=== PATIENT | male | born 1975 | race Caucasian/White ===

== ENCOUNTER 2016-10-26 09:21 | Emergency (ER) ==
[2016-10-26 09:29] VITALS: BP 121/79; TEMP 97.8; BMI 33.7
[2016-10-26] MEDS ORDERED: MOTRIN SUSP PO STA (09:37)
[2016-10-26] MEDS ORDERED: FLEXERIL PO STA (09:37)
[2016-10-26 09:48] LABS: BILIRUBIN,URINE Negative (NEGATIVE); KETONES,URINE Negative (NEGATIVE); LEUKOCYTE ESTERASE ,URINE Negative (NEGATIVE); NITRITE,URINE Negative (NEGATIVE); PH,URINE 5.5 (5-9); PROTEIN,URINE Negative (NEGATIVE); URINE, BLOOD Trace-lysed (NEGATIVE)
[2016-10-26 10:00] LABS: ADD URINE MICROSCOPIC YES
--- NOTE | 2016-10-26 10:17 | CT ---
EXAM: CT abdomen and pelvis without contrast. HISTORY: Low back pain per TECHNIQUE: Multi-slice transaxial helical CT. Coronal and sagittal reformatons were performed. COMPARISON: 01/06/2009. FINDINGS: The heart is normal in size. The lung bases are clear. Evaluation of the solid organs is limited without IV contrast. 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 There is no intrahepatic biliary ductal dilation. No hydronephrosis or renal calculus is seen. The gallbladder, pancreas, and adrenal glands appear grossly unremarkable within the confines of a noncontrast exam. The bowel is not dilated. Urinary bladder is nondistended. The prostate appears unremarkable. The appendix is normal in size. No evidence of intra-abdominal inflammation or fluid is seen. There is no retroperitoneal adenopathy. Mild to moderate multilevel degenerative changes of the lower lumba r spine is present. The IMPRESSION: 1. No acute abdominal findings. 2. No hydronephrosis, bowel obstruction, or intra-abdominal inflammation. Normal appendix. 3. 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 4. Mild splenomegaly.
--- NOTE | 2016-10-26 10:17 | CT ---
Exam: CT of the lumbar spine without intravenous contrast. Comparison: X-ray performed 08/12/2015. Reason for exam: Low back pain. FINDINGS: No acute fracture or listhesis. The vertebral body heights are well maintained. There i s mild to moderate degenerative disease with intervertebral body disc space height loss and facet ar thropathy. T12-L1: No significant central canal stenosis or foraminal narrowing. L1-L2: No significant central canal stenosis or foraminal narrowing. L2-L3: No significant central canal stenosis or foraminal narrowing. L3-L4: No significant central canal stenosis or foraminal narrowing. L4-L5: Small broad-based disc bulge with mild narrowing of the canal centrally and mild to moderate by foraminal stenosis secondary to extruded disc and facet hypertrophy. L5-S1: Left acentric disc protrusion with narrowing of the central canal and marked left sided and moderate right-sided foraminal stenosis secondary to a combination of extruded disc and facet hypert rophy. Impression: 1. No acute fracture or listhesis in the lumbar spine. 2. Broad-based disc bulge with mild central canal narrowing and mild to moderate foraminal stenosis at L4-L5. 3. Left acentric disc protrusion at L5-S1 with central canal narrowing and marked left-sided forami nal stenosis and moderate right-sided foraminal stenosis. If clinical concern exists, MRI may be per formed.
--- NOTE | 2016-10-26 10:24 | ED.PDOC ---
General ED Provider: Dr. CHALO GOODMAN-ER Chief Complaint: Back Pain Stated Complaint: my back hurts Time Seen by Physician: 09:30 Mode of Arrival: Walk-In Information Source: Patient, Family Exam Limitations: No limitations Nursing and Triage Documentation Reviewed and Agree: Yes Musculoskeletal Complaint Exam - Back Pain Complaint/Exam Mechanism of Injury: Reports: No known trauma Onset/Duration: 3 days Symptoms Are: Still present Timing: Constant Episodes Lasting: Days Initial Severity: Mild Current Severity: Moderate Location: Reports: Discrete Character: Reports: Dull, Aching, Stiffness Aggravating: Reports: Movements, Lifting, Bending, Walking Alleviating: Reports: None Associated Signs and Symptoms: Denies: Swelling, Redness, Bruising, Fever, Weakness, Numbness, Tingling, Abdominal pain, Flank pain, Bladder incontinence, Bowel incontinence, Weight loss, Pain with weight bearing Related Surgical History: Reports: None Focal Tenderness: Yes Paraspinal Muscle Tenderness: Yes Paraspinal Muscle Spasm: No Scoliosis: No Lordosis: No Kyphosis: No SLR Test: Right Negative, Left Negative Hip Motion Testing Pain: Right Negative, Left Negative Focal Weakness: Present: None Focal Sensory Loss: Present: None Gait: Present: Normal Differential Diagnoses: Arthritis, Herniated Disk, Renal Colic, Strain, Sprain Review of Systems - Review Of Systems Constitutional: Reports: No symptoms Eyes: Reports: No symptoms Ears, Nose, Mouth, Throat: Reports: No symptoms Respiratory: Reports: No symptoms Cardiac: Reports: No symptoms GI: Reports: No symptoms : Reports: No symptoms Musculoskeletal: Reports: Back pain Skin: Reports: No symptoms Neurological: Reports: No symptoms Endocrine: Reports: No symptoms Hematologic/Lymphatic: Reports: No symptoms All Other Systems: Reviewed and Negative Past Medical History - Past Medical History Previously Healthy: Yes Endocrine: Reports: Unknown Cardiovascular: Reports: Unknown Respiratory: Reports: Unknown Hematological: Reports: Unknown Gastrointestinal: Reports: Unknown Genitourinary: Reports: Unknown Neuro/Psych: Reports: Unknown Musculoskeletal: Reports: Unknown Cancer: Reports: Unknown - Surgical History General Surgical History: Reports: Unknown - Family History Family History: Reports: Unknown - Social History Smoking Status: Current some day smoker Hx Substance Use: No Alcohol Screening: Occasionally Lives: With family Physical Exam - Physical Exam Appearance: Well-appearing, No pain distress, Well-nourished Pain Distress: Moderate Eyes: JULIAN, EOMI, Conjunctiva clear ENT: Ears normal, Nose normal, Oropharynx normal Neck: Supple Respiratory: Airway patent, Breath sounds clear, Breath sounds equal, Respirations nonlabored Cardiovascular: RRR GI/: Soft, Nontender, No masses, Bowel sounds normal, No Organomegaly Musculoskeletal: Normal strength, ROM intact, No edema, No calf tenderness Skin: Warm, Dry, Normal color Neurological: Sensation intact, Motor intact, Reflexes intact, Cranial nerves intact, Alert, Oriented Psychiatric: Affect appropriate, Mood appropriate Interpretation - Radiology Interpretation Radiology Interpretation By: Radiologist Radiology Results: Negative Exam Interpreted: CT Scan Critical Care Note - Critical Care Note Total Time (mins): 0 Course - Course Orders, Labs, Meds: Lab Review 10/26/16 09:40 Urine Color Yellow Urine Clarity Clear Urine pH 5.5 Ur Specific [place] 1.025 Urine Protein Negative Urine Glucose (UA) Negative Urine Ketones Negative Urine Blood Trace-lysed Urine Nitrite Negative Urine Bilirubin Negative Urine Urobilinogen 0.2 Ur Leukocyte Esterase Negative Urine Microscopic RBC 0-2 Ur Squamous Epith Cells Not present Orders Category Date Time Status UA [URINALYSIS C & S IF INDICATED] Stat LAB 10/26/16 09:40 Completed Cyclobenzaprine HCl [Flexeril] MEDS 10/26/16 09:37 Discontinued 10 mg PO ONCE STA Ibuprofen Susp [Motrin Susp] MEDS 10/26/16 09:37 Discontinued 800 mg PO ONCE STA CT ABDOMEN/PELVIS WO CONTRAST Stat RADS 10/26/16 09:[address] LUMBAR SPINE W/O CONTRAST Stat RADS 10/26/16 09:37 Completed Medications Discontinued Medications Generic Name Dose Route Start Last Admin Trade Name Rodríguezq PRN Reason Stop Dose Admin Cyclobenzaprine HCl 10 mg 10/26/16 09:37 10/26/16 09:42 Flexeril PO 10/26/16 09:38 10 mg ONCE STA Administration Ibuprofen 800 mg 10/26/16 09:37 10/26/16 09:44 Motrin Susp PO 10/26/16 09:38 800 mg ONCE STA Administration Vital Signs: Temp Pulse Resp BP Pulse Ox 10/26/16 09:21 97.8 F 70 16 121/79 98 Departure - Departure Time of Disposition: 10:24 Disposition: HOME SELF-CARE Discharge Problem: Backache Instructions: Acute Low Back Pain (ED) Condition: Good Pt referred to PMD for follow-up: Yes Additional Instructions: motrin 600mg tid wtih food #21--flexeril 10mg tid prn spasm#21--heat alt ice==f/ u wit pcp Allergies/Adverse Reactions: Allergies No Known Allergies Allergy (Unverified 10/26/16 09:31) Home Medications: Ambulatory Orders Lisinopril 10 mg PO DAILY 10/26/16 Pravastatin Sodium [Pravachol] 20 mg PO DAILY 10/26/16 Disposition Discussed With: Patient, Family
== END 2016-10-26 10:34 | disposition home or self-care (01) ==
LOC: ED 09:21
DX: M54.5 Low back pain (principal); F17.210 Nicotine dependence, cigarettes, uncomplicated
CPT/HCPCS: 81001; 99283

== ENCOUNTER 2016-12-04 05:59 | Emergency (ER) ==
[2016-12-04 06:04] VITALS: BP 158/89; TEMP 97.5; BMI 39.5
[2016-12-04] MEDS ORDERED: MORPHINE 2 MG/ML SYRINGE IVP STA (06:22)
[2016-12-04] MEDS ORDERED: ZOFRAN 4 MG/2 ML IVP STA (06:22)
[2016-12-04] MEDS ORDERED: SODIUM CHLORIDE 1,000 ML IV STA (06:22)
[2016-12-04] MEDS ORDERED: PROTONIX IV IVP STA (06:22)
--- NOTE | 2016-12-04 06:36 | ED.PDOC ---
General Stated Complaint: im hurting and i am sick Time Seen by Physician: 06:05 Mode of Arrival: Walk-In Information Source: Patient, Family Exam Limitations: No limitations Nursing and Triage Documentation Reviewed and Agree: Yes <CHALO VALVERDE - Last Filed: 12/04/16 06:33> <MIREYANANCY - Last Filed: 12/04/16 08:45> ED Provider: Dr. NANCY GONSALEZ Chief Complaint: Abdominal Pain GI Complaint Exam - Abdominal Pain Complaint/Exam Onset: Gradual Duration: 6hrs Symptoms Are: Still present Timing: Constant Initial Severity: Mild Current Severity: Mild Location of Pain: Discrete, Epigastric Radiates To: Reports: Chest Character: Reports: Burning Aggravating: Reports: None Alleviating: Reports: Vomiting Associated Signs and Symptoms: Reports: Chest pain, Nausea, Vomiting. Denies: Diaphoresis, Fever, Cough, Dizziness, Back pain, Constipation, Blood in stool, Dysuria, Urinary frequency, Decreased urine output, Decreased appetite, Discharge, Diarrhea, Decreased activity Testicular Torsion Risk Factors: Reports: None Surgical Obstruction Risk Factors: Reports: None Differential Diagnoses: Gastroenteritis, Pancreatitis, GB, PUD Quality Indicator For Non-Traumatic Chest Pain/Syncope: EKG Performed <CHALO VALVERDE Filed: 12/04/16 06:33> Review of Systems - Review Of Systems Constitutional: Reports: No symptoms Eyes: Reports: No symptoms Ears, Nose, Mouth, Throat: Reports: No symptoms Respiratory: Reports: No symptoms Cardiac: Reports: Chest pain GI: Reports: Abdominal pain, Nausea, Vomiting : Reports: No symptoms Musculoskeletal: Reports: No symptoms Skin: Reports: No symptoms Neurological: Reports: No symptoms Endocrine: Reports: No symptoms Hematologic/Lymphatic: Reports: No symptoms All Other Systems: Reviewed and Negative <CHALO VALVERDE Last Filed: 12/04/16 06:33> Past Medical History - Past Medical History Previously Healthy: Yes Endocrine: Reports: Unknown Cardiovascular: Reports: Unknown Respiratory: Reports: Unknown Hematological: Reports: Unknown Gastrointestinal: Reports: Unknown Genitourinary: Reports: Unknown Neuro/Psych: Reports: Unknown Musculoskeletal: Reports: Unknown Cancer: Reports: Unknown - Surgical History General Surgical History: Reports: Unknown - Family History Family History: Reports: Unknown - Social History Smoking Status: Never smoker Hx Substance Use: No Alcohol Screening: None Lives: With family - Immunizations Tetanus Shot up to Date: Yes <MAXINE-JULIOCHALO - Last Filed: 12/04/16 06:33> Physical Exam - Physical Exam Appearance: Well-appearing, No pain distress, Well-nourished Pain Distress: Mild Eyes: JULIAN, EOMI, Conjunctiva clear ENT: Ears normal, Nose normal, Oropharynx normal Neck: Supple Respiratory: Airway patent, Breath sounds clear, Breath sounds equal, Respirations nonlabored Cardiovascular: RRR, Pulses normal, No rub, No murmur GI/: Soft, No masses, Bowel sounds normal, No Organomegaly, Tender Musculoskeletal: Normal strength Skin: Warm Neurological: Sensation intact, Motor intact, Reflexes intact, Cranial nerves intact, Alert, Oriented Psychiatric: Affect appropriate, Mood appropriate <MAXINEMEÑOCHALO Last Filed: 12/04/16 06:33> Physician Notification - Case Discussed Physician Notified: dr gonsalez Time of Notification: 07:00 <MAXINEMEÑOCHALO Last Filed: 12/04/16 06:33> - Case Discussed Physician Notified: Estella FORTE Time of Notification: 08:45 (TRANSFER TO [facility]) <NANCY GONSALEZ - Last Filed: 12/04/16 08:45> Critical Care Note - Critical Care Note Total Time (mins): 0 <NANCY GONSALEZ - Last Filed: 12/04/16 08:45> Course - Course Hematology/Chemistry: 12/04/16 06:35 12/04/16 06:35 <NANCY GONSALEZ - Last Filed: 12/04/16 08:45> - Course Orders, Labs, Meds: Lab Review 12/04/16 06:35 WBC 9.12 RBC 4.75 Hgb 13.6 L Hct 39.3 L MCV 82.7 MCH 28.6 MCHC 34.6 RDW Coeff of Sam 14.4 Plt Count 219 Immature Gran % (Auto) 0.3 Neut % (Auto) 68.0 Lymph % (Auto) 19.3 [place] % (Auto) 9.2 Eos % (Auto) 3.0 Baso % (Auto) 0.2 Immature Gran # (Auto) 0.0 Neut # 6.2 Lymph # 1.8 [place] # 0.8 Eos # 0.3 Baso # 0.0 ESR 20 H Sodium 139 Potassium 3.9 Chloride 104 Carbon Dioxide 25 Anion Gap 13.9 BUN 15 Creatinine 0.96 Estimated GFR (MDRD) 86.00 BUN/Creatinine Ratio 15.62 Glucose 101 H Calcium 8.9 Total Bilirubin 0.64 AST 18 ALT 19 Alkaline Phosphatase 95 Total Creatine Kinase 183 CK-MB (CK-2) 3.2 CK-MB (CK-2) % 1.86183 Troponin I 0.0130 Total Protein 6.8 Albumin 3.6 Globulin 3.2 Albumin/Globulin Ratio 1.13 Amylase 25 Lipase 15 Orders Category Date Time Status EKG-(ED ONLY) Stat CARDIO 12/04/16 06:22 Completed NPO REMINDER: IMAGING ONCE CARE 12/04/16 06:23 Active ED IV/MEDIPORT/POWERPORT .ONCE EMERGENCY 12/04/16 06:22 Active AMYLASE Stat LAB 12/04/16 06:35 Completed CBC W/ AUTO DIFF Stat LAB 12/04/16 06:35 Completed COMPREHENSIVE METABOLIC PANEL Stat LAB 12/04/16 06:35 Completed CREATINE KINASE Stat LAB 12/04/16 06:35 Completed ESR Stat LAB 12/04/16 06:35 Completed LIPASE Stat LAB 12/04/16 06:35 Completed TROPONIN I Stat LAB 12/04/16 06:35 Completed 0.9 % Sodium Chloride [Saline Flush] MEDS 12/04/16 06:22 Active 1 syr IVF PRN PRN Morphine Sulfate [Morphine 2 mg/ml Syringe] MEDS 12/04/16 06:22 Discontinued 2 mg IVP ONCE STA Ondansetron HCl/Pf [Zofran 4 mg/2 ml] MEDS 12/04/16 06:22 Discontinued 4 mg IVP ONCE STA Pantoprazole Sodium [Protonix IV] MEDS 12/04/16 06:22 Discontinued 40 mg IVP ONCE STA Sodium Chloride 0.9% [Sodium Chloride] 1,000 ml MEDS 12/04/16 06:22 Active IV 100 mls/hr CT ABDOMEN/PELVIS W CONTRAST Stat RADS 12/04/16 06:[address] CHEST PE PROTOCOL Stat RADS 12/04/16 06:23 Completed Medications Generic Name Dose Route Start Last Admin Trade Name Freq PRN Reason Stop Dose Admin Sodium Chloride 1,000 mls @ 100 mls/hr 12/04/16 06:22 12/04/16 06:56 Sodium Chloride IV 12/04/16 16:21 100 mls/hr .Q10H STA Administration Sodium Chloride 1 syr 12/04/16 06:22 Saline Flush IVF PRN PRN To flush IV Discontinued Medications Generic Name Dose Route Start Last Admin Trade Name Frank PRN Reason Stop Dose Admin Morphine Sulfate 2 mg 12/04/16 06:22 12/04/16 06:56 Morphine 2 Mg/Ml Syringe IVP 12/04/16 06:23 2 mg ONCE STA Administration Ondansetron HCl 4 mg 12/04/16 06:22 12/04/16 06:57 Zofran 4 Mg/2 Ml IVP 12/04/16 06:23 4 mg ONCE STA Administration Pantoprazole Sodium 40 mg 12/04/16 06:22 12/04/16 07:05 Protonix Iv IVP 12/04/16 06:23 40 mg ONCE STA Administration Vital Signs: Temp Pulse Resp BP Pulse Ox 12/04/16 06:00 97.5 F L 83 18 158/89 H 95 Departure <CHALO VALVERDE - Last Filed: 12/04/16 06:33> - Departure Time of Disposition: 10:00 Pt referred to PMD for follow-up: Yes <NANCY GONSALEZ - Last Filed: 12/04/16 08:45> - Departure Disposition: [facility] Discharge Problem: Pulmonary embolism Qualifiers: Pulmonary embolism type: other Chronicity: unspecified Acute cor pulmonale presence: without acute cor pulmonale Qualifier Code: (I26.99) Other pulmonary embolism without acute cor pulmonale Instructions: Deep Venous Thrombosis (ED) Condition: Good Allergies/Adverse Reactions: Allergies No Known Allergies Allergy (Unverified 12/04/16 06:04) Home Medications: Ambulatory Orders Lisinopril 10 mg PO DAILY 10/26/16 Pravastatin Sodium [Pravachol] 20 mg PO DAILY 10/26/16
[2016-12-04 06:44] LABS: BASOPHILS % (AUTO) 0.2 % (0.0-3.0); EOSINOPHILS # (AUTO) 0.3 K/ul (0.0-0.7); HEMATOCRIT 39.3 % (42.0-52.0); HEMOGLOBIN 13.6 g/dl (14.0-18.0); IMMATURE GRANULOCYTE % (AUTO) 0.3 % (0.0-5.0); LYMPHOCYTES # (AUTO) 1.8 K/uL (0.60-3.4); LYMPHOCYTES % (AUTO) 19.3 (10.0-50.0); MEAN CORPUSCULAR HEMOGLOBIN 28.6 pg (27.0-31.0); MEAN CORPUSCULAR HGB CONC 34.6 (31.8-35.4); MEAN CORPUSCULAR VOLUME 82.7 fl (80.0-94.0); MONOCYTES # (AUTO) 0.8 K/uL (0.4-2.0); MONOCYTES % (AUTO) 9.2 (0-10); NEUTROPHILS # (AUTO) 6.2 K/ul (2.0-6.9); PLATELET COUNT 219 10^3/uL (140-440); RED BLOOD COUNT 4.75 10^6/ul (4.70-6.10); WHITE BLOOD COUNT 9.12 K/ul (4.2-10.2)
[2016-12-04 07:05] LABS: ALBUMIN 3.6 g/dL (3.4-5.0); ALBUMIN/GLOBULIN RATIO 1.13; ANION GAP 13.9; BILIRUBIN,TOTAL 0.64 mg/dL (0.00-1.20); BUN/CREATININE RATIO 15.62; CALCIUM 8.9 mg/dL (8.2-10.2); CREATININE 0.96 mg/dL (0.60-1.10); POTASSIUM 3.9 mmol/L (3.5-5.1); TOTAL PROTEIN 6.8 g/dL (6.4-8.2)
[2016-12-04 07:21] LABS: TROPONIN I 0.013 ng/ml (0.0000-0.4000)
[2016-12-04 07:27] LABS: CREATINE KINASE MB 3.2 ng/ml (0.0-3.6)
[2016-12-04 07:48] LABS: ERYTHROCYTE SEDIMENTATION RATE 20 mm/hr (0-15); ESR INTERNAL QC INTERNAL QC VALID
--- NOTE | 2016-12-04 08:07 | CT ---
[place]: CT abdomen and pelvis with IV contrast. Clinical indication: Abdominal pain. TECHNIQUE: Axial IV contrast enhanced CT images of the abdomen and pelvis were obtained followed by coronal and sagittal reformats. Comparison is made to the prior study dated 10/26/2016. Findings: The visualized portions lower thorax are within normal limits. There is no free intra-abdominal gas or fluid. The liver, gallbladder, adrenals, pancreas, spleen, and kidneys are normal. The bowel, including the appendix, is unremarkable. There is lower lumbar degenerative disc and fac et disease. The remainder of the visualized bony structures are unremarkable. Impression: 1. Lower lumbar degenerative disc and facet disease. 2. Otherwise unremarkable CT of the abdomen and pelvis.
--- NOTE | 2016-12-04 08:13 | CT ---
EXAM: CTA of the chest with IV contrast HISTORY: Chest pain COMPARISON: 08/18/2015 chest x-ray TECHNIQUE: CTA of the chest with IV contrast. MIP and 3-D reformats were obtained. FINDINGS: A minimal amount of gas is seen within the main coronary artery, likely secondary to the IV contrast injection. To proximal right lower lobe segmental pulmonary emboli are identified on axial images 5 9 and 60.More distal right lower lobe segmental pulmonary emboli are suspected on axial images 79 an d 80. These findings persist on reformatted images. A left lower lobe segmental pulmonary embolus i s seen on axial images 76-78. No main or lobar pulmonary emboli are seen. Heart size is normal. Coronary artery calcified atherosclerotic plaque is present. No mediastinal or hilar lymphadenopathy is seen. A 4 mm left upper lobe subpleural pulmonary nodule is seen on axial image 50. A 4 mm left lower lobe subpleural pulmonary nodule seen on axial image 84. There is minimal posterior right lower lobe pr obable atelectasis or scarring. No focal consolidation, pleural effusion or pneumothorax is seen. There is minimal right lower lobe mosaic attenuation. There are mild degenerative changes of the thoracic spine. Operative changes of the lower cervical s pine are seen. IMPRESSION: Bilateral lower lobe segmental pulmonary emboli. Two 4 mm left lung pulmonary nodules. If the patient is high risk a follow-up CT in 12 months could be considered. Minimal right lower lobe mosaic attenuation suggesting air trapping. Coronary atherosclerosis. Findings were discussed with Dr. Mcbride at 0808 hours on 12/04/2016
[2016-12-04] MEDS ORDERED: LOVENOX SUBCUT STA (08:46)
== END 2016-12-04 11:00 | disposition short-term general hospital (02) ==
LOC: ED 05:59
DX: I26.99 Other pulmonary embolism without acute cor pulmonale (principal); R10.13 Epigastric pain; R11.2 Nausea with vomiting, unspecified; R07.9 Chest pain, unspecified
CPT/HCPCS: 36415; 80053; 82150; 82550; 82553; 83690; 84484; 85025; 85651; 93005; 93010; 96361; 96372; 96374; 96375; 99285

== ENCOUNTER 2016-12-04 10:59 | Outpatient (CLI) ==
[2016-12-04 06:04] VITALS: BMI 39.5
== END 2016-12-04 11:00 | disposition home or self-care (01) ==
LOC: AMBL 10:59
PROVIDERS: ATTEND Internal Medicine
DX: I26.99 Other pulmonary embolism without acute cor pulmonale (principal); R10.84 Generalized abdominal pain; R00.1 Bradycardia, unspecified; J45.909 Unspecified asthma, uncomplicated

== ENCOUNTER 2017-01-18 08:02 | Emergency (ER) ==
[2017-01-18 08:11] VITALS: TEMP 97.3; BMI 36.8
[2017-01-18] MEDS ORDERED: NORCO 10-325 PO STA (08:21)
--- NOTE | 2017-01-18 08:41 | ED.PDOC ---
General ED Provider: Dr. NANCY GOMES Chief Complaint: Shoulder Pain/Injury Stated Complaint: left shoulder pain Time Seen by Physician: 08:00 (seen with karon Awad) Mode of Arrival: Walk-In Information Source: Patient, Family Exam Limitations: No limitations (pain while power washing almost fell held on to something pulled shoulder left side) Referred to ED by: Other (pain is entirely reproduceable present kiara RN) Nursing and Triage Documentation Reviewed and Agree: Yes Musculoskeletal Complaint Exam - Shoulder Pain Complaint/Exam Mechanism of Injury: Reports: Trauma (PULLED LEFT SHOULDER AT [facility] WHILE POWER WASHING) Onset/Duration: 2 HRS Symptoms Are: Still present Timing: Constant Episodes LastinHRS Initial Severity: Moderate Current Severity: Mild Location: Reports: Discrete Character: Reports: Aching, Spasmodic, Stiffness Alleviating: Reports: Rest Aggravating: Reports: Movement, Lifting, Flexion, Extension, Internal rotation, External rotation, Abduction Associated Signs and Symptoms: Denies: Swelling, Redness, Bruising, Fever, Weakness, Numbness, Tingling Non-Orthopedic Risk Factors: Reports: None DVT Risk Factors: Reports: None Septic Arthritis Risk Factors: Reports: None Shoulder Findings: Absent: Swelling, Ecchymosis, Abnormal contour, Rotation, Ligamentous instability, Laceration, Erythema, Warmth, Blisters, Other joint pain, Foreign body, Adson's Sign Tenderness: Present: AC joint, Proximal humerus, Rotator cuff muscles Limited Range of Motion: Present: Abduction, Adduction, Flexion, Extension, Internal rotation, External rotation, Rotator cuff muscles, Rotator cuff insertion Differential Diagnoses: AC Seperation, Arthritis, Closed Fracture, Rotator Cuff Injury Quality Indicator For Non-Traumatic Chest Pain/Syncope: EKG Performed Review of Systems - Review Of Systems Constitutional: Reports: No symptoms Eyes: Reports: No symptoms Ears, Nose, Mouth, Throat: Reports: No symptoms Respiratory: Reports: No symptoms Cardiac: Denies: Chest pain (no exertional chest pain no C/P ) GI: Reports: No symptoms : Reports: No symptoms Musculoskeletal: Reports: Joint pain (left shoulder ) Skin: Reports: No symptoms Neurological: Reports: No symptoms Endocrine: Reports: No symptoms Hematologic/Lymphatic: Reports: No symptoms All Other Systems: Reviewed and Negative Past Medical History - Past Medical History Previously Healthy: Yes Endocrine: Reports: Unknown Cardiovascular: Reports: Unknown Respiratory: Reports: Unknown Hematological: Reports: Unknown Gastrointestinal: Reports: Unknown Genitourinary: Reports: Unknown Neuro/Psych: Reports: Unknown Musculoskeletal: Reports: Unknown Cancer: Reports: Unknown - Surgical History General Surgical History: Reports: Unknown - Family History Family History: Reports: Unknown - Social History Smoking Status: Never smoker Hx Substance Use: No Alcohol Screening: None Physical Exam - Physical Exam Appearance: Well-appearing, No pain distress, Well-nourished Eyes: JULIAN, EOMI, Conjunctiva clear ENT: Ears normal, Nose normal, Oropharynx normal Respiratory: Airway patent, Breath sounds clear, Breath sounds equal, Respirations nonlabored Cardiovascular: RRR, Pulses normal, No rub, No murmur GI/: Soft, Nontender, No masses, Bowel sounds normal, No Organomegaly Musculoskeletal: Normal strength, ROM intact, No edema, No calf tenderness Skin: Warm, Dry, Normal color Neurological: Sensation intact, Motor intact, Reflexes intact, Cranial nerves intact, Alert, Oriented Psychiatric: Affect appropriate, Mood appropriate Critical Care Note - Critical Care Note Total Time (mins): 0 Course - Course Orders, Labs, Meds: Orders Category Date Time Status Hydrocodone Bit/Acetaminophen [[place] 10-325] MEDS 01/18/17 08:21 Stat 1 tab PO ONCE STA SHOULDER, LEFT MIN 2V Stat RADS 01/18/17 08:18 Ordered Medications Discontinued Medications Generic Name Dose Route Start Last Admin Trade Name Rodríguezq PRN Reason Stop Dose Admin Acetaminophen/Hydrocodone Bitart 1 tab 01/18/17 08:21 01/18/17 08:36 [place] 10-325 PO 01/18/17 08:22 1 tab ONCE STA Administration Vital Signs: Temp Pulse Resp BP Pulse Ox 01/18/17 08:02 97.3 F L 81 20 159/103 H 94 L Departure - Departure Time of Disposition: 08:43 ( WITH KARON LOPEZ IN THE ROOM AT 8:50 AM DISCUSSED IF FILMS OFFICALLY DEEMED NEGATIVE MAY GO HOME FOLLOW UP WITH [facility]) Disposition: HOME SELF-CARE Discharge Problem: Shoulder pain, Injury of shoulder region Instructions: Shoulder Sprain (ED) Condition: Good Pt referred to PMD for follow-up: Yes Additional Instructions: Please call your Family Physician as soon as possible to schedule a follow-up appointment.mri stressed Allergies/Adverse Reactions: Allergies No Known Allergies Allergy (Verified 01/18/17 08:13) Home Medications: Ambulatory Orders Lisinopril 10 mg PO DAILY 10/26/16 Pravastatin Sodium [Pravachol] 20 mg PO DAILY 10/26/16 Apixaban [Eliquis] 5 mg PO BID 01/18/17 Hydrocodone/Acetaminophen [[place] 10-325 Tablet] 1 each PO Q8HR #14 tablet
--- NOTE | 2017-01-18 08:42 | DI ---
Exam: Three x-rays of the left shoulder. Comparison: CT PE protocol performed 12/04/2016. Reason for exam: Pain. FINDINGS: No acute fracture or malalignment. The left humeral head articulates to the bony glenoid. The acromioclavicular joint spaces well maintained. The clavicle is intact. Impression: No acute fracture or malalignment in the left shoulder
[2017-01-18 09:11] VITALS: BP 129/93
== END 2017-01-18 09:00 | disposition home or self-care (01) ==
LOC: ED 08:02
DX: M25.512 Pain in left shoulder (principal); X50.1XXA Overexertion from prolonged static or awkward postures, initial encounter
CPT/HCPCS: 99283

== ENCOUNTER 2017-11-22 13:49 | Outpatient (CLI) ==
[2017-02-25 15:15] VITALS: BMI 36.5
== END 2017-11-22 14:06 ==
LOC: AMBL 13:49
PROVIDERS: ATTEND Emergency Medicine
DX: R45.851 Suicidal ideations (principal)

== ENCOUNTER 2018-01-28 11:01 | Emergency (ER) ==
[2018-01-28 11:08] VITALS: BP 123/77; TEMP 96.7; BMI 44.5
[2018-01-28] MEDS ORDERED: TORADOL IM STA (11:25)
[2018-01-28] MEDS ORDERED: NORFLEX IM STA (11:25)
--- NOTE | 2018-01-28 11:41 | DI ---
Exam: Two-view chest x-ray. Date: 01/28/2018. Comparison: 08/18/2015. HISTORY: Shoulder pain. FINDINGS: No acute osseous abnormalities are observed. The lungs are clear. Cardiac silhouette and pulmonary vasculature are normal. Impression: No acute intrathoracic findings.
--- NOTE | 2018-01-28 11:43 | DI ---
Exam: Two-view right shoulder. Date: 01/28/2018. Comparison: None. HISTORY: Shoulder pain. FINDINGS: The soft tissues are within normal limits. The mineralization is normal. The acromioclav icular and glenohumeral joints are maintained. No fracture or dislocation is observed. Impression: No acute osseous abnormality in the right shoulder.
--- NOTE | 2018-01-28 12:01 | ED.PDOC ---
General ED Provider: Dr. CHALO GOODMAN-ER Chief Complaint: Shoulder Pain/Injury Stated Complaint: my shoulder hurts when i move it--anya been moving lots of boxes and furniture at home Time Seen by Physician: 11:05 Mode of Arrival: Walk-In Information Source: Patient Exam Limitations: No limitations Primary Care Provider: JARETT MORALEZ Nursing and Triage Documentation Reviewed and Agree: Yes Does patient meet sepsis criteria?: No System Inflammatory Response Syndrome: Not Applicable Sepsis Protocol: For patient's 13 years and over: Temp is 96.8 and below OR 101 and greater Pulse >90 BPM Resp >20/minute Acutely Altered Mental Status Are patient's symptoms suggestive of a new infection, such as: -Pneumonia -Skin, Soft Tissue -Endocarditis -UTI -Bone, Joint Infection -Implantable Device -Acute Abdominal Infection -Wound Infection -Meningitis -Blood Stream Catheter Infection -Unknown Musculoskeletal Complaint Exam - Shoulder Pain Complaint/Exam Mechanism of Injury: Reports: No known trauma Onset/Duration: several days Symptoms Are: Still present Timing: Constant Initial Severity: Mild Current Severity: Mild Location: Reports: Discrete Character: Reports: Dull, Aching, Spasmodic, Stiffness Aggravating: Reports: Movement, Lifting, Flexion, Extension, Internal rotation, External rotation, Abduction Associated Signs and Symptoms: Denies: Swelling, Redness, Bruising, Fever, Weakness, Numbness, Tingling Tenderness: Present: Rotator cuff muscles Limited Range of Motion: Present: Adduction Differential Diagnoses: Arthritis, Rotator Cuff Injury Quality Indicator For Non-Traumatic Chest Pain/Syncope: EKG Performed Review of Systems - Review Of Systems Constitutional: Reports: No symptoms Eyes: Reports: No symptoms Ears, Nose, Mouth, Throat: Reports: No symptoms Respiratory: Reports: No symptoms Cardiac: Reports: No symptoms GI: Reports: No symptoms : Reports: No symptoms Musculoskeletal: Reports: Joint pain, Muscle pain Skin: Reports: No symptoms Neurological: Reports: No symptoms Endocrine: Reports: No symptoms Hematologic/Lymphatic: Reports: No symptoms All Other Systems: Reviewed and Negative Past Medical History - Past Medical History Previously Healthy: Yes Endocrine: Reports: Unknown Cardiovascular: Reports: Unknown Respiratory: Reports: Unknown Hematological: Reports: Unknown Gastrointestinal: Reports: Unknown Genitourinary: Reports: Unknown Neuro/Psych: Reports: Unknown Musculoskeletal: Reports: Unknown Cancer: Reports: Unknown - Surgical History General Surgical History: Reports: Unknown - Family History Family History: Reports: Unknown - Social History Smoking Status: Never smoker Hx Substance Use: No Alcohol Screening: Occasionally - Immunizations Tetanus Shot up to Date: (unknown) Physical Exam - Physical Exam Appearance: Well-appearing, No pain distress, Well-nourished Pain Distress: Moderate Eyes: JULIAN, EOMI, Conjunctiva clear ENT: Ears normal, Nose normal, Oropharynx normal Neck: Supple Respiratory: Airway patent, Breath sounds clear, Breath sounds equal, Respirations nonlabored Cardiovascular: RRR, Pulses normal, No rub, No murmur GI/: Soft, Nontender, No masses, Bowel sounds normal, No Organomegaly Musculoskeletal: Limited ROM Skin: Warm, Dry, Normal color Neurological: Sensation intact, Motor intact, Reflexes intact, Cranial nerves intact, Alert, Oriented Psychiatric: Affect appropriate, Mood appropriate Interpretation - Radiology Interpretation Radiology Interpretation By: Radiologist Radiology Results: Negative Exam Interpreted: CXR Re-Evaluation - Re-Evaluation Time of Re-Evaluation: 13:06 Status: Improved Vital Signs Stable: Yes Pain Level: 2 Appearance: NAD Lungs: Clear Skin: Warm and Dry Neuro: Alert and Oriented X3 CV: RRR Critical Care Note - Critical Care Note Total Time (mins): 0 Course - Course Hematology/Chemistry: 01/28/18 12:00 01/28/18 12:00 Orders, Labs, Meds: Lab Review 01/28/18 01/28/18 01/28/18 12:00 12:00 12:00 WBC 7.77 RBC 4.82 Hgb 14.2 Hct 41.4 L MCV 85.9 MCH 29.5 MCHC 34.3 RDW Coeff of Sam 13.0 Plt Count 222 Immature Gran % (Auto) 0.5 Neut % (Auto) 64.8 Lymph % (Auto) 21.2 Charles % (Auto) 10.7 H Eos % (Auto) 2.4 Baso % (Auto) 0.4 Immature Gran # (Auto) 0.0 Neut # (Auto) 5.0 Lymph # (Auto) 1.7 Charles # (Auto) 0.8 Eos # (Auto) 0.2 Baso # (Auto) 0.0 D-Dimer (Manual) 306.75 Sodium 137.8 Potassium 4.10 Chloride 102.2 Carbon Dioxide 30.0 Anion Gap 9.70 BUN 14.3 Creatinine 1.11 H Estimated GFR (MDRD) 72.00 BUN/Creatinine Ratio 12.88 Glucose 82.8 Calcium 9.02 Total Bilirubin 0.45 AST 18.0 ALT 16.1 Alkaline Phosphatase 87.9 Total Creatine Kinase 124.3 CK-MB (CK-2) 1.100 CK-MB (CK-2) % 0.8800 Troponin I < 0.012 Total Protein 7.13 Albumin 4.10 Globulin 3.03 Albumin/Globulin Ratio 1.35 Orders Category Date Time Status EKG-(ED ONLY) Stat CARDIO 01/28/18 11:19 Completed CBC W/ AUTO DIFF Stat LAB 01/28/18 12:00 Completed COMPREHENSIVE METABOLIC PANEL Stat LAB 01/28/18 12:00 Completed CREATINE KINASE Stat LAB 01/28/18 12:00 Completed D-DIMER Stat LAB 01/28/18 12:00 Completed TROPONIN I Stat LAB 01/28/18 12:00 Completed Ketorolac Tromethamine [Toradol] MEDS 01/28/18 11:25 Discontinued 60 mg IM ONCE STA Orphenadrine Citrate [Norflex] MEDS 01/28/18 11:25 Discontinued 60 mg IM ONCE STA CXR [CHEST, 2 VIEWS PA & LAT] Stat RADS 01/28/18 11:20 Completed SHOULDER, RIGHT MIN 2V Stat RADS 01/28/18 11:20 Completed Medications Discontinued Medications Generic Name Dose Route Start Last Admin Trade Name Freq PRN Reason Stop Dose Admin Ketorolac Tromethamine 60 mg 01/28/18 11:25 01/28/18 11:37 Toradol IM 01/28/18 11:26 60 mg ONCE STA Administration Orphenadrine Citrate 60 mg 01/28/18 11:25 01/28/18 11:38 Norflex IM 01/28/18 11:26 60 mg ONCE STA Administration Vital Signs: Temp Pulse Resp BP Pulse Ox 01/28/18 11:02 96.7 F L 76 16 123/77 96 Departure - Departure Time of Disposition: 13:07 Disposition: HOME SELF-CARE Discharge Problem: Injury of shoulder region Instructions: Tendinitis (ED) Condition: Good Pt referred to PMD for follow-up: Yes IPMP verified?: No Additional Instructions: toradol 10mg qid prn pain #16--flexeril 10mg tid prn #30---heat--f/u with pcp Allergies/Adverse Reactions: Allergies No Known Allergies Allergy (Verified 01/28/18 11:10) Home Medications: Ambulatory Orders Lisinopril 10 mg PO DAILY 10/26/16 Pravastatin Sodium [Pravachol] 20 mg PO DAILY 10/26/16 Cyanocobalamin (Vitamin B-12) [Vitamin B-12] 500 mcg PO DAILY 01/28/18 Ergocalciferol (Vitamin D2) [Drisdol] 50,000 unit PO DAILY 01/28/18 Melatonin 3 mg PO DAILY 01/28/18 Quetiapine Fumarate [Seroquel] 100 mg PO DAILY 01/28/18 Sertraline HCl 25 mg PO DAILY 01/28/18 Disposition Discussed With: Patient
== END 2018-01-28 13:18 | disposition home or self-care (01) ==
LOC: ED 11:01
DX: S49.91XA Unspecified injury of right shoulder and upper arm, initial encounter (principal); X50.0XXA Overexertion from strenuous movement or load, initial encounter
CPT/HCPCS: 36415; 80053; 82550; 82553; 84484; 85025; 85379; 93005; 93010; 96372; 99282